=== PATIENT | male | born 1935 | race Caucasian/White ===

== ENCOUNTER 2018-05-22 09:40 | Emergency (ER) | payer MEDICAID ==
[~2018-05-22] VITALS: Ht 170.2 cm; Wt 45.4 kg
[2018-05-22] MEDS ORDERED: ALEVE220 M2 PO (10:11)
[2018-05-22] MEDS ORDERED: FOSAMAX70 MG ORAL (10:11)
[2018-05-22] MEDS ORDERED: PLAVIX75 MG ORAL (10:11)
[2018-05-22] MEDS ORDERED: TRAMADOL HCL50 MG ORAL (10:11)
[2018-05-22] MEDS ORDERED: ATORVASTATIN CA10 MG ORAL (10:11)
[2018-05-22] MEDS ORDERED: DOC-Q-LACE100 M1 ORAL (10:11)
[2018-05-22] MEDS ORDERED: ADVIL200 M2 ORAL (10:11)
[2018-05-22] MEDS ORDERED: MICROZIDE12.5 M1 PO (10:11)
[2018-05-22] MEDS ORDERED: SYNTHROID88 MCG ORAL (10:11)
[2018-05-22 10:14] VITALS: BP 148/84
--- NOTE | 2018-05-22 10:16 | NUR ---
ED Nurse Note: pt walked in to ED with family member due to back pain for last 10 days. per family member, pt had back surgery last yr. and ever since pt has pain. no recent injury. AAO x4. respirations even and non-labored noted. will wait for the further order.
--- NOTE | 2018-05-22 10:22 | Emergency Room Report ---
History of Present Illness General Chief Complaint: Back Pain-No Injury Source: Family Member Present Illness HPI Patient present with reports of increasing pain to the left mid back pain And left lower back area Daughter reports that the patient was at [facility] last year for about one month Several levels of fractures however no intervention was able to be performed Patient had been doing better however over the past 7 days has been complaining of increased pain Especially when trying to stand denies any fevers or chills denies any obvious fall Denies any focal weakness denies any neuropathy Allergies: Coded Allergies: No Known Allergies (Unverified , 05/22/18) Patient History Past Medical History: see triage record Pertinent Family History: none Reviewed Nursing Documentation: PMH: Agreed; PSxH: Agreed Nursing Documentation-PMH Past Medical History: No History, Except For Hx Hypertension: Yes Review of Systems All Other Systems: negative except mentioned in HPI Physical Exam Vital Signs Date Time Temp Pulse Resp B/P (MAP) Pulse Ox O2 Delivery O2 Flow Rate FiO2 05/22/18 10:01 98.1 76 18 148/84 100 Room Air Sp02 EP Interpretation: reviewed, normal General Appearance: well appearing, no apparent distress Head: normocephalic, atraumatic Eyes: bilateral eye PERRL, bilateral eye EOMI ENT: normal pharynx, no angioedema Neck: supple, no meningismus Respiratory: lungs clear, no respiratory distress, no retraction Cardiovascular #1: regular rate, rhythm Gastrointestinal: non tender, soft Musculoskeletal: other - Some discomfort palpable to the left paraspinal area lower thoracic region and upper lumbar region, also some reproducible discomfort left posterior superior iliac crest Neurologic: alert, oriented x3 Skin: normal color, no rash Lymphatic: no adenopathy Medical Decision Making Diagnostic Impression: Primary Impression: Back pain ER Course Patient presents with fairly reproducible back pain Also fairly close correlation with his previous back fractures daughter reporting the patient having extensive stay at [facility] At this time multiple repeat imaging is obtained given the patient's age and risk factors for possible vascular other infectious pathology blood work is also obtained Blood work and urine sample are clear imaging does reveal previous chronic fractures no obvious acute pathology case was discussed with the daughter, I did report that given his age and the patient's presentation inpatient admission and further specialty consultation can be appropriate however she reports that her mom is at home with other medical conditions such as Alzheimer' s and cannot leave him here and her mom at home and will attempt close outpatient follow-up Labs Test 05/22/18 11:06 White Blood Count 7.1 K/UL (4.8-10.8) Red Blood Count 4.24 M/UL (4.70-6.10) Hemoglobin 13.9 G/DL (14.2-18.0) Hematocrit 41.8 % (42.0-52.0) Mean Corpuscular Volume 99 FL (80-99) Mean Corpuscular Hemoglobin 32.8 PG (27.0-31.0) Mean Corpuscular Hemoglobin Concent 33.2 G/DL (32.0-36.0) Red Cell Distribution Width 11.3 % (11.6-14.8) Platelet Count 229 K/UL (150-450) Mean Platelet Volume 5.6 FL (6.5-10.1) Neutrophils (%) (Auto) 74.2 % (45.0-75.0) Lymphocytes (%) (Auto) 17.3 % (20.0-45.0) Monocytes (%) (Auto) 7.4 % (1.0-10.0) Eosinophils (%) (Auto) 0.5 % (0.0-3.0) Basophils (%) (Auto) 0.5 % (0.0-2.0) Urine Color Pale yellow Urine Appearance Clear Urine pH 7 (4.5-8.0) Urine Specific [place] 1.005 (1.005-1.035) Urine Protein Negative (NEGATIVE) Urine Glucose (UA) Negative (NEGATIVE) Urine Ketones Negative (NEGATIVE) Urine Blood Negative (NEGATIVE) Urine Nitrite Negative (NEGATIVE) Urine Bilirubin Negative (NEGATIVE) Urine Urobilinogen Normal MG/DL (0.0-1.0) Urine Leukocyte Esterase Negative (NEGATIVE) Sodium Level 136 MMOL/L (136-145) Potassium Level 4.7 MMOL/L (3.5-5.1) Chloride Level 100 MMOL/L (98-107) Carbon Dioxide Level 28 MMOL/L (21-32) Anion Gap 8 mmol/L (5-15) Blood Urea Nitrogen 18 mg/dL (7-18) Creatinine 1.2 MG/DL (0.55-1.30) Estimat Glomerular Filtration Rate mL/min (>60) Glucose Level 88 MG/DL (74-106) Calcium Level 9.6 MG/DL (8.5-10.1) Total Bilirubin 0.5 MG/DL (0.2-1.0) Aspartate Amino Transf (AST/SGOT) 28 U/L (15-37) Alanine Aminotransferase (ALT/SGPT) 24 U/L (12-78) Alkaline Phosphatase 63 U/L (46-116) Total Creatine Kinase 76 U/L (26-308) Creatine Kinase MB 1.5 NG/ML (0.0-3.6) Creatine Kinase MB Relative Index 1.9 Total Protein 7.9 G/DL (6.4-8.2) Albumin 3.9 G/DL (3.4-5.0) Globulin 4.0 g/dL Albumin/Globulin Ratio 1.0 (1.0-2.7) EKG Diagnostic Results Rate: normal Rhythm: NSR ST Segments: no acute changes Rhythm Strip Diag. Results EP Interpretation: yes Rate: 60 Rhythm: NSR, no PVC's, no ectopy Chest X-Ray Diagnostic Results Chest X-Ray Diagnostic Results : Chest X-Ray Ordered: Yes # of Views/Limited/Complete: 1 View Indication: Chest Pain EP Interpretation: Yes Interpretation: no consolidation, no effusion, no pneumothorax Impression: No acute disease Electronically Signed by: Shaan Joseph, DO CT/MRI/US Diagnostic Results CT/MRI/US Diagnostic Results : Impression CT L-spineIMPRESSION: No obvious acute injury. Multiple compression fracture deformities of lower thoracic and lumbar vertebra probably old. Please correlate clinically. Osteoporosis Atherosclerotic vascular disease CT thoracic spineIMPRESSION: Multiple compression fractures of thoracic vertebra as described above. No compelling evidence that any of these are acute with limitations as described above. Osteoporosis Atherosclerotic vascular disease Posterior basilar atelectasis. Bronchiectasis involving portions of the upper lobes. CT pelvic no acute fracture Last Vital Signs Date Time Temp Pulse Resp B/P (MAP) Pulse Ox O2 Delivery O2 Flow Rate FiO2 05/22/18 10:14 98.1 76 18 148/84 100 Room Air Status: improved Disposition: HOME, SELF-CARE Condition: Improved Additional Instructions: Patient is provided with the discharge instructions notified to follow up with primary doctor in the next 2-3 days otherwise return to the er with any worsening symptoms. Please note that this report is being documented using [employer] technology. This can lead to erroneous entry secondary to incorrect interpretation by the dictating instrument. Shaan Joseph DO May 22, 2018 10:22
--- NOTE | 2018-05-22 10:38 | NUR ---
ED Nurse Note: pt down for CT. pending EKG and blood draw.
[2018-05-22 11:37] LABS: APPEARANCE,URINE CLEAR; BASOPHILS % (AUTO) 0.5 % (0.0-2.0); BILIRUBIN, URINE NEGATIVE (NEGATIVE); COLOR,URINE PALE YELLOW; EOSINOPHILS % (AUTO) 0.5 % (0.0-3.0); GLUCOSE, URINE (UA) NEGATIVE (NEGATIVE); HEMATOCRIT 41.8 % (42.0-52.0); HEMOGLOBIN 13.9 G/DL (14.2-18.0); KETONES,URINE NEGATIVE (NEGATIVE); LEUKOCYTE ESTERASE ,URINE NEGATIVE (NEGATIVE); LYMPHOCYTES % (AUTO) 17.3 % (20.0-45.0); MEAN CORPUSCULAR VOLUME 99 FL (80-99); MONOCYTES % (AUTO) 7.4 % (1.0-10.0); NEUTROPHILS % (AUTO) 74.2 % (45.0-75.0); NITRITE,URINE NEGATIVE (NEGATIVE); PH,URINE 7 (4.5-8.0); PLATELET COUNT 229 K/UL (150-450); PROTEIN,URINE NEGATIVE (NEGATIVE); RED BLOOD COUNT 4.24 M/UL (4.70-6.10); RED CELL DISTRIBUTION WIDTH 11.3 % (11.6-14.8); UROBILINOGEN,URINE NORMAL MG/DL (0.0-1.0); WHITE BLOOD COUNT 7.1 K/UL (4.8-10.8)
--- NOTE | 2018-05-22 11:45 | Diagnostic Imaging Report ---
Indication: Back pain Technique: Continuous helical transaxial imaging of the lumbar spine was obtained from the lung bases to the pubic symphysis. No IV contrast was administered. Coronal 2-D reformats were also obtained. Study obtained in a Siemens sensation [address] Total Dose length Product (DLP): 257.[address] Dose Index Volume (CTDIvol): 9.27 mGy Comparison: None Findings: There are multiple compression fracture deformities demonstrated for example the superior endplate of L5, L2, T12. L2 is the most severe. None of these fractures are definitely acute. The bones are osteopenic. There superimposed degenerative osteophytes throughout the lumbar spine. There is generalized loss of the L4 vertebra height which is due to compression fracture. This is also probably old. There is no soft tissue swelling identified. There is sclerosis and hypertrophy of the lumbar facets at multiple levels. Aorta is moderately calcified. There is mild basilar atelectasis present. IMPRESSION: No obvious acute injury. Multiple compression fracture deformities of lower thoracic and lumbar vertebra probably old. Please correlate clinically. Osteoporosis Atherosclerotic vascular disease The CT scanner at [facility] is accredited by the [employer] and the scans are performed using dose optimization techniques as appropriate to a performed exam including Automatic Exposure control.
[2018-05-22 11:48] LABS: ANION GAP 8 mmol/L (5-15); BLOOD UREA NITROGEN 18 mg/dL (7-18); CALCIUM 9.6 MG/DL (8.5-10.1); CARBON DIOXIDE 28 MMOL/L (21-32); CHLORIDE 100 MMOL/L (98-107); CREATININE 1.2 MG/DL (0.55-1.30); POTASSIUM 4.7 MMOL/L (3.5-5.1); SODIUM 136 MMOL/L (136-145)
--- NOTE | 2018-05-22 11:53 | Diagnostic Imaging Report ---
Indication: Back pain Technique: Continuous helical transaxial imaging of the thoracic spine was obtained from the lung bases to the pubic symphysis. No IV contrast was administered. Coronal 2-D reformats were also obtained. Study obtained in a Siemens sensation [address] Total Dose length Product (DLP): 494.[address] Dose Index Volume (CTDIvol): 12.41 mGy Comparison: None Findings: There are multiple compression fracture deformities appreciated of varying degrees within the thoracic spine. There is no compelling evidence that any of these are acute keeping in mind there are no reference studies for comparison. Mild compression fracture deformity of the superior endplate of T12 noted. Moderate loss of height due to fractures involving T10 and T11 noted. Moderate loss of height of the T8 and mild loss of height of T7 vertebra due to old fractures. Severe loss of height/vertebral plana at T9 noted. Focal mild retropulsion of bone noted in association with this fracture. No significant malalignment identified. The bones are osteopenic. The visualized upper lung ellington show mild bronchiectasis. Mild reticular densities also demonstrated posteriorly atelectasis. There is slight irregularity in the mid sternum which may be a misregistration artifact due to motion on the sagittal reconstructions. The aorta is moderately calcified. IMPRESSION: Multiple compression fractures of thoracic vertebra as described above. No compelling evidence that any of these are acute with limitations as described above. Osteoporosis Atherosclerotic vascular disease Posterior basilar atelectasis. Bronchiectasis involving portions of the upper lobes. The CT scanner at [facility] is accredited by the [employer] and the scans are performed using dose optimization techniques as appropriate to a performed exam including Automatic Exposure control.
--- NOTE | 2018-05-22 11:55 | Diagnostic Imaging Report ---
Indication: Abdominal pain Technique: Continuous helical transaxial imaging of the pelvis was obtained from the iliac crest to the pubic symphysis. Coronal 2-D reformats were also obtained. Study obtained in a Siemens sensation [address] Intravenous non-ionic contrast was administered. Total Dose length Product (DLP): 253.[address] Dose Index Volume (CTDIvol): 8.78 mGy Comparison: None Findings: Bones are diffusely osteopenic. No definite acute fracture identified. There is no malalignment. Narrowing and sclerosis of the sacroiliac joints and both hips are noted consistent with osteoarthritis. Moderate aortoiliac calcifications are present. There is moderate fecal retention in the colon. Bilateral inguinal hernias are present containing fat. The hernia on the right also contains small bowel. IMPRESSION: Osteoporosis. No acute fracture seen. No acute injury appreciated. Bilateral inguinal hernias containing fat. The right hernia also contains small bowel. Atherosclerotic vascular disease Moderate fecal retention. The CT scanner at [facility] is accredited by the [employer] and the scans are performed using dose optimization techniques as appropriate to a performed exam including Automatic Exposure control.
[2018-05-22 12:03] LABS: ALANINE AMINOTRANSFERASE 24 U/L (12-78); ALBUMIN 3.9 G/DL (3.4-5.0); ALKALINE PHOSPHATASE 63 U/L (46-116); ASPARTATE AMINO TRANSFERASE 28 U/L (15-37); BILIRUBIN,TOTAL 0.5 MG/DL (0.2-1.0); CKMB 1.5 NG/ML (0.0-3.6); CREATINE KINASE 76 U/L (26-308)
--- NOTE | 2018-05-22 12:42 | Diagnostic Imaging Report ---
Indication: Chest pain Comparison: None A single view chest radiograph was obtained. Findings: No definite infiltrate or pulmonary vascular congestion identified. The heart is normal in size. The aorta is mildly enlarged consistent with atherosclerotic vascular disease. The bones are osteopenic. Impression: No acute disease
[2018-05-22 13:30] VITALS: BP 137/78
--- NOTE | 2018-05-22 13:31 | NUR ---
ER DISCHARGE NOTE: Patient is cleared to be discharged per ERMD, pt is aox4, on room air, with stable vital signs. pt left the unit without signed dc instructions, per daughter, " I have alzheimer mom at home alone, I need to go." pt id band and iv site removed without complications. pt is able to ambulate with steady gait. pt took all belongings.
--- NOTE | 2018-05-24 20:24 | Cardiology Report ---
APPROVED REPORT EKG Measurement Heart [id number] Sinus rhythm with 1st degree AV block Otherwise normal ECG
== END 2018-05-22 13:32 | disposition home or self-care (01) ==
LOC: EMR 10:10
DX: M54.9 Dorsalgia, unspecified (principal); M81.0 Age-related osteoporosis without current pathological fracture; I70.90 Unspecified atherosclerosis; J98.11 Atelectasis; K40.20 Bilateral inguinal hernia, without obstruction or gangrene, not specified as recurrent
CPT/HCPCS: 36415; 71045; 72128; 72131; 72192; 80053; 81003; 82550; 82553; 85025; 93005; 99284